=== PATIENT | male | born 1955 | race Caucasian/White ===

== ENCOUNTER 2024-03-01 11:35 | Day surgery (SDC) | payer OTHER, BC ==
[2024-02-25 09:57] VITALS: BMI 28.5
[2024-03-01] MEDS ORDERED: CARBACHOL 0.01% INTRA-OCULAR 1.5 ML VIAL ONE (11:51)
[2024-03-01] MEDS ORDERED: NEO/POLYMYX B SULF/DEXAMETH OPHTHALMIC 5ML BOTTLE ONE (11:51)
[2024-03-01] MEDS ORDERED: BSS (NA/CA/MG/K) BALANCED SALT SOLUTION OPHTH SOLN 15 ML BOTTLE ONE (11:51)
[2024-03-01] MEDS: PHENYLEPHRINE 2.5% OPTHALMIC DROP 2ML BOTTLE ONE (12:05)
[2024-03-01] MEDS: CIPROFLOXACIN 0.3% EYE DROPS 5 ML BOTTLE ONE (12:05)
[2024-03-01] MEDS: CYCLOPENTOLATE 2% OPHTH SOLN 2 ML BOTTLE ONE (12:05)
[2024-03-01] MEDS: TROPICAMIDE 1% OPHTH SOLN 15 ML BOTTLE ONE (12:05)
[2024-03-01] MEDS ORDERED: MIDAZOLAM HCL 2 MG/2 ML SINGLE DOSE VIAL ONE (12:36)
[2024-03-01 13:46] VITALS: RESP 19; TEMP 97.1
[2024-03-01 14:03] VITALS: BP 120/90; PULSE 82
== END 2024-03-01 14:00 | disposition home or self-care (01) ==
LOC: FASU 11:35
PROVIDERS: ATTEND Ophthalmology
PROC: 08RJ3JZ Replacement of Right Lens with Synthetic Substitute, Percutaneous Approach (ICD-10-PCS; principal; 2024-03-01 13:18)
DX: H26.8 Other specified cataract (principal)
CPT/HCPCS: 66984; V2632; 82962